=== PATIENT | male | born 2000 | race Caucasian/White ===

== ENCOUNTER 2024-03-19 15:25 | Emergency (ER) | payer OTHER, SELFPAY ==
[2024-03-19 15:47] VITALS: BP 144/75; PULSE 77; RESP 18; TEMP 36.7; O2SAT 97; BMI 17.7
--- NOTE | 2024-03-19 16:54 | CRLHL7_ITS ---
For Patients: As a result of the Century Cures Act, medical imaging exams and procedure reports are released immediately into your electronic medical record. You may view this report before your referring provider. If you have questions, please contact your health care provider. INDICATION: Leg pain and swelling. TECHNIQUE: Ultrasound venous duplex lower left extremity. Compression venous exam was performed using singleton-scale, color Doppler, and spectral Doppler analysis. COMPARISON: None. FINDINGS: Deep veins: Sonographic imaging demonstrates the left common femoral, deep femoral, superficial femoral, popliteal, posterior tibial and the contralateral right common femoral veins to be fully compressible with normal color Doppler blood flow. Superficial veins: Greater saphenous vein is fully compressible. No popliteal cyst. IMPRESSION: No DVT in the left lower extremity. Dictated by Nena Root MD @ 03/19/2024 6:18:04 PM (Electronically Signed)
--- NOTE | 2024-03-19 16:55 | ED.GENADULT ---
HPI - General Adult General Date Seen: 03/19/24 Chief complaint: Extremity Pain/Injury, Lower Stated complaint: L leg cramping-poss blood clot Time Seen by Provider: 03/19/24 16:27 Source: patient Mode of arrival: ambulatory Limitations: no limitations History of Present Illness HPI narrative: Patient is a 23-year-old male with no pertinent medical problems presenting to the emergency department for left calf pain. He states 2 days ago he got a cramp in his left leg starting just distal to the posterior knee. After this cramp he has had continued pain in the area with only mild improvement of the past couple days. He spoke to the triage line to told him to come to the ER to get checked for blood clots. He has no history of blood clots. Has not noticed any lower extremity swelling. Denies hormonal treatment, weakness, numbness, lower extremity discoloration, chest pain, shortness of breath, history of familial clotting disorders. No other concerns noted at this time. He does states he lives a relatively sedentary lifestyle. Related Data Home Medications ?Medication ?Instructions ?Recorded ?Confirmed No Known Home Medications 03/19/24 03/19/24 Allergies Allergy/AdvReac Type Severity Reaction Status Date / Time No Known Drug Allergies Allergy Verified 03/19/24 15:56 Review of Systems Narrative: Pertinent systems reviewed and were negative unless stated in HPI Exam Narrative: Exam Narrative: Const: Well-nourished, Well-developed, in mild distress Eyes: PERRL, no conjunctival injection, and symmetrical lids HENT: Atraumatic external nose and ears. Moist mucous membranes. Removed MSK:Extremities w/o deformity, Normal Active ROM, tenderness noted to left calf. Skin: Warm, Dry. No rashes or lesions. Neuro: Normal Muscle tone, No focal neurological deficits. Psych: Awake, Alert, & Oriented x3. Appropriate mood and affect. Const: Vital Signs, click to edit/add: Vital Signs - 24 hr 03/19/24 15:47 Temperature 98.0 F Pulse Rate [Right Pulse Oximeter] 77 Respiratory Rate 18 Blood Pressure [Ri ght Upper Arm] 144/75 H Pulse Oximetry 97 Oxygen Delivery Me thod Room Air Course Vital Signs Vital signs: Initial Vital Signs Temperature 98.0 F 03/19/24 15:47 Temperature Source Temporal Artery Scan 03/19/24 15:47 Pulse Rate 77 03/19/24 15:47 Pulse Rhythm Regular 03/19/24 15:47 Pulse Strength 3+ Normal 03/19/24 15:47 Respiratory Rate 18 03/19/24 15:47 Blood Pressure 144/75 H 03/19/24 15:47 Blood Pressure Mean 98 03/19/24 15:47 Blood Pressure Position Sitting 03/19/24 15:47 Pulse Oximetry 97 03/19/24 15:47 Oxygen Delivery Method Room Air 03/19/24 15:47 Vital Signs Temperature 98.0 F 03/19/24 15:47 Pulse Rate 77 03/19/24 15:47 Respiratory Rate 18 03/19/24 15:47 Blood Pressure 144/75 H 03/19/24 15:47 Pulse Oximetry 97 03/19/24 15:47 Oxygen Delivery Method Room Air 03/19/24 15:47 Temperature 98.0 F 03/19/24 15:47 Pulse Rate 77 03/19/24 15:47 Respiratory Rate 18 03/19/24 15:47 Blood Pressure 144/75 H 03/19/24 15:47 Pulse Oximetry 97 03/19/24 15:47 Oxygen Delivery Method Room Air 03/19/24 15:47 Medical Decision Making MDM Narrative Medical decision making narrative: Patient is a 23-year-old male presenting for left calf pain. My initial some cottrell is that this is a muscle strain from his cramps but with continued left calf pain I do want to rule out a blood clot so will order a ultrasound. This is 1st crampy in a long time to see and states they are pretty rare for him. Does states eating and drinking normally and my concern about electrolyte abnormalities causing cramps is low. I do not believe lab work is necessary. Ultrasound shows no signs of DVT. I do believe this is a muscle strain. He will be discharged and they are agreeable to this plan. Imaging Data Venous US: Attestation: I have reviewed the pertinent imaging results. Radiologist's impression: No DVT in the left lower extremity. Dictated by Nena Root MD @ 03/19/2024 6:18:04 PM Discharge Plan Discharge Clinical Impression: Muscle strain Patient Disposition: Home, Self-Care Condition: Stable Instructions: Muscle Strain (DC) Additional Instructions: I believe your cramp caused a muscle strain. Take Tylenol and ibuprofen for pain. We see no signs of blood clot on your ultrasound. Return to emergency department for new or worsening symptoms Prescriptions: No Action No Known Home Medications Follow Up/Referrals: Tavo Brunson MD [Staff Physician] - Stand Alone Forms: [employer] Instructions
== END 2024-03-19 18:29 | disposition home or self-care (01) ==
PROVIDERS: Emergency Provider Student in an Organized Health Care Education/Training Program
DX: S86.912A Strain of unspecified muscle(s) and tendon(s) at lower leg level, left leg, initial encounter (principal)
CPT/HCPCS: 93971; 99283; 99284